=== PATIENT | female | born 2000 | race Caucasian/White ===

== ENCOUNTER 2020-10-21 11:08 | Emergency (ER) | payer SELFPAY ==
--- NOTE | ~2020-10-21 | US_ITS ---
EXAMINATION: US OB <=14 wk fetus w TV DATE: 10/21/2020 13:05 INDICATION: Vaginal bleeding TECHNIQUE: Real-time pelvic ultrasound utilizing both a transvaginal and transabdominal probe was pe rformed. The interpreting radiologist was not present for the study. COMPARISON: None. FINDINGS: The uterus measures 8.7 x 5.8 x 5.7 cm. There is an intrauterine gestational sac. A yolk sac and fet al pole are identified. The crown rump length measures 4 mm, which correlates with an estimated gesta tional age of 6 weeks and 1 days. No heart motion is detectable on cine grayscale images. No ev ident subchorionic hematoma. The right ovary measures 2.5 x 2.5 x 2.1 cm. The left ovary measures 4.2 x 3.1 x 3.3 cm. There is no free fluid in the pelvis. IMPRESSION: 1. Single fetus with crown-rump length of 4 mm consistent with gestational age by ultrasound of 6 wee ks 1 day(s) +/- 4 day(s) with ultrasound estimated date of delivery ([facility]) of 06/15/2021. 2. No discernible heart motion which may be related to early stage of . Reviewed, dictated and finalized at location [facility]. IMPRESSION: 1. Single fetus with crown-rump length of 4 mm consistent with gestational age by ultrasound of 6 weeks 1 day(s) +/- 4 day(s) with ultrasound estimated date o f delivery ([facility]) of 06/15/2021. 2. No discernible heart motion which may be related to early stage of pre gnancy.
[2020-10-21 11:10] VITALS: BP 127/79; PULSE 91; RESP 18; TEMP 36.6; O2SAT 100
[2020-10-21 11:31] LABS: Basophils Percent Auto 0.6 % (0.2-1.2); Eosinophils Absolute Auto 0.1 K/mm3 (0-0.3); Eosinophils Percent Auto 0.7 % (0-4.4); Hemoglobin 12.8 g/dL (12.0-15.0); Immature Granulocyte Absolute 0.01 K/mm3 (0.00-0.031); Immature Granulocyte Percent A 0.1 % (0-0.5); Lymphocytes Absolute Auto 1.81 K/mm3 (0.9-3.2); Lymphocytes Percent Auto 25.7 % (18.3-44.2); Mean Corpuscular HGB Conc 32.8 g/dl (32-36); Mean Corpuscular Hemoglobin 28.7 pg (26-34); Mean Corpuscular Volume 87.4 fl (80-100); Mean Platelet Volume 9.1 fl (7.4-10.4); Monocytes Absolute Auto 0.4 K/mm3 (0.1-0.6); Monocytes Percent Auto 6.1 % (2.6-8.5); Neutrophils Absolute Auto 4.7 K/mm3 (1.3-6.7); Neutrophils Percent Auto 66.8 % (45.5-73.1); Platelet Count Result 262 k/mm3 (150-375); Red Blood Count 4.46 M/mm3 (4.2-5.4); Red Cell Distribution Width 13.9 % (11.5-14.5); White Blood Count 7.1 K/mm3 (4.5-10.0)
--- NOTE | 2020-10-21 12:20 | ED.PREGNANCY ---
HPI - General Chief complaint: Vaginal Bleeding Stated complaint: , vaginal bleeding Time Seen by Provider: 10/21/20 12:04 Source: patient and RN notes reviewed Mode of arrival: ambulatory Limitations: no limitations History of Present Illness HPI Narrative: This is a 19 year old female approximately 6 weeks GA who presents for evaluation of vaginal bleeding. She found out she was 2 days ago after a positive urine test. She developed vaginal bleeding and lower abdominal cramping this morning. Initially she was having brown discharge, but she states she has developed heavier bleeding. She states she is passed out clot. She report minial suprapubic pain. She denies fever, chills, dizziness, nausea or vomiting. LMP September 11 Related Data Home Medications Medication Instructions Recorded Confirmed No Home Medications 10/21/20 10/21/20 Allergies Allergy/AdvReac Type Severity Reaction Status Date / Time amoxicillin [Augmentin] Allergy Intermediate Unknown Verified 10/21/20 12:12 clavulanic acid [Augmentin] Allergy Intermediate Unknown Verified 10/21/20 12:12 Review of Systems Review of Systems: All systems reviewed & are unremarkable except as noted in HPI and below PMFSH Past Medical History Medical History (Updated 10/21/20 @ 14:37 by Corei Ellis MD) Patient denies medical problems Surgical History Surgical History (Updated 10/21/20 @ 12:42 by Corie Ellis MD) No pertinent past surgical history Social History Social History Smoking status: Never smoker Exam Const: General: no acute distress and alert Eyes: EOM: EOMs intact bilaterally Chest: Chest palpation & inspection: normal inspection of the chest Resp: Effort & Inspection: normal respiratory effort and no retractions Auscultation: clear to auscultation bilaterally Cardio: Rate: regular rate Rhythm: regular rhythm Heart sounds: no murmurs GI: GI Palp: Yes Soft to palpation, No Tenderness to palpation present (GI) and No Guarding due to palpation present (GI) Auscultation: normal bowel sounds : Speculum Exam - Cervix: Cervical os closed Other: dark blood in vaginal vault, no clots Skin: General skin exam: normal color Rashes: no rashes Neuro: General: patient oriented x3, moves all extremities and CN's II-XI intact bilaterally Psych: Mental Status: mental status grossly normal Affect: normal affect Course Consultations Consultation #1: I spoke with Dr. Leon who is carbon sequestration plant operator for OBGYN. She recommends patient get BHCG repeat in 48 hours and that patient be seen in clinic by Monday, monday at the latest. Patent is getting dose of rhogam before discharge today. Date: 10/21/20 Time: 14:34 Vital Signs Vital signs: Vital Signs Temperature 97.9 F 10/21/20 11:10 Pulse Rate 91 10/21/20 11:10 Respiratory Rate 18 10/21/20 11:10 Blood Pressure 127/79 10/21/20 11:10 Pulse Oximetry 100 10/21/20 11:10 Temperature 98.4 F 10/21/20 14:46 Pulse Rate 68 10/21/20 15:22 Respiratory Rate 18 10/21/20 15:22 Blood Pressure 109/47 L 10/21/20 15:22 Pulse Oximetry 100 10/21/20 15:22 MDM - OB/Uterine Contractions Lab Data Attestation: I reviewed the patient's lab results. Result diagrams: 10/21/20 11:22 Labs: Lab Results 10/21/20 10/21/20 10/21/20 Range/Units 11:22 11:22 11:22 WBC 7.1 (4.5-10.0) K/mm3 RBC 4.46 (4.2-5.4) M/mm3 Hgb 12.8 (12.0-15.0) g/dL Hct 39.0 (37.0-47.0) % MCV 87.4 (80-100) fl MCH 28.7 (26-34) pg MCHC 32.8 (32-36) g/dl RDW 13.9 (11.5-14.5) % Plt Count 262 (150-375) k/mm3 MPV 9.1 (7.4-10.4) fl Immature Gran % (Auto) 0.1 (0-0.5) % Neut % (Auto) 66.8 (45.5-73.1) % Lymph % (Auto) 25.7 (18.3-44.2) % Terry % (Auto) 6.1 (2.6-8.5) % Eos % (Auto) 0.7 (0-4.4) % Baso % (Auto) 0.6 (0.2-1.2) % Lymph # (Auto) 1.81 (0.9-3.2) K/mm3
[2020-10-21 12:37] LABS: Add Urine Microscopic? YES; Appearance Urine Clear (Clear); Bacteria Urine Trace /hpf; Bilirubin Urine Negative (Negative); Blood Urine 3+ (Negative); Color Urine Yellow (Yellow); Glucose Urine UA Negative (Negative); Ketones Urine 1+ mg/dL (Negative); Leukocyte Esterase Ur 1+ LEU/UL (Negative); Mucus Urine Rare /lpf; Nitrate Urine Negative (Negative); Protein Urine Negative (Negative); Specific Grav Ur 1.013 (1.001-1.035); Squamous Epithelial Cell Urine Occasional /hpf (Few); Urobilinogen Urine Negative mg/dL (<2.0)
--- NOTE | 2020-10-21 14:04 | PC.NURSE ---
Dr. Ellis at bedside for pelvic exam.
[2020-10-21 14:46] VITALS: BP 110/67; PULSE 76; RESP 14; TEMP 36.9; O2SAT 100
[2020-10-21 15:22] VITALS: BP 109/47; PULSE 68; RESP 18; O2SAT 100
== END 2020-10-21 15:23 | disposition home or self-care (01) ==
PROVIDERS: Emergency Provider General Practice
DX: O20.0 Threatened abortion (principal); Z3A.01 Less than 8 weeks gestation of pregnancy
CPT/HCPCS: 36415; 76801; 76817; 81001; 84702; 85025; 85461; 87086; 90384; 96372; 99284; J2790

== ENCOUNTER 2020-10-23 10:40 | Outpatient (CLI) | payer SELFPAY ==
[2020-10-23 11:02] LABS: Hematocrit 38.7 % (37.0-47.0); Hemoglobin 12.6 g/dL (12.0-15.0); Mean Corpuscular HGB Conc 32.6 g/dl (32-36); Mean Corpuscular Hemoglobin 28.6 pg (26-34); Mean Platelet Volume 9.1 fl (7.4-10.4); Platelet Count Result 256 k/mm3 (150-375); Red Cell Distribution Width 13.9 % (11.5-14.5); White Blood Count 5.4 K/mm3 (4.5-10.0)
[2020-10-23 11:33] LABS: Beta HCG Quantitative 271.56 mIU/ML
== END 2020-10-23 10:41 | disposition home or self-care (01) ==
PROVIDERS: PCP Obstetrics & Gynecology; Visit Provider Obstetrics & Gynecology
DX: O20.0 Threatened abortion (principal); Z3A.00 Weeks of gestation of pregnancy not specified
CPT/HCPCS: 36415; 84702; 85027

== ENCOUNTER 2020-10-30 09:01 | Outpatient (CLI) | payer MEDICAID, SELFPAY | END 2020-10-30 09:02 | disposition home or self-care (01) | PROVIDERS: PCP Obstetrics & Gynecology; Visit Provider General Practice | DX: O20.0 Threatened abortion (principal); Z3A.00 Weeks of gestation of pregnancy not specified | CPT/HCPCS: 36415; 84702 ==

== ENCOUNTER 2021-11-15 13:29 | Emergency (ER) | payer OTHER, SELFPAY ==
--- NOTE | ~2021-11-15 | US_ITS ---
US OB <=14 wk fetus w TV DATE: 11/15/2021 16:41 INDICATION: Six-week gravid patient with lower abdominal pain TECHNIQUE: Real-time imaging via transabdominal and transvaginal approaches COMPARISON: 10/21/2020 obstetrical ultrasound FINDINGS: The uterus measures approximately 7 height, 5.2 cm AP and 6.6 cm transverse dimension. Ther e is an intrauterine gestational sac with yolk sac but no definite pole identified. Sac size is consistent with estimated gestational age of 5 weeks 5 days. Right ovary 3.0 x 2.4 x 3.1 cm. Left ovary 3.6 x 3.3 x 3.1 cm. There is vascular flow to both ovaries . No pelvic mass lesion or abnormal pelvic fluid collection is detected. IMPRESSION: Early intrauterine gestational sac, estimated age of 5 weeks 5 days by sac size. No pole is detected but yolk sac is visualized Reviewed, dictated and finalized at [facility]. Reviewed, dictated and finalized at location [facility].
[2021-11-15 13:31] VITALS: BP 128/72; PULSE 86; RESP 18; TEMP 36.8; O2SAT 100
--- NOTE | 2021-11-15 13:54 | ED.ABDPAIN ---
HPI - Abdominal Pain General Chief Complaint: Abdominal Pain Stated Complaint: pelvic cramping without vaginal bleeding - Time Seen by Provider: 11/15/21 13:45 History of Present Illness HPI narrative: 20-year-old female who is a G2, P0 presents to the emergency room for evaluation of suprapubic pain. Patient states that she found out she was this morning after her lower abdominal cramping began. Patient denies any vaginal bleeding or vaginal discharge. Patient also endorses breast tenderness. Denies dysuria. Denies fever. Was menstrual period was October 09 Related Data Home Medications Medication Instructions Recorded Confirmed No Home Medications 10/21/20 10/21/20 Allergies Allergy/AdvReac Type Severity Reaction Status Date / Time amoxicillin [Augmentin] Allergy Intermediate Unknown Verified 11/15/21 13:30 clavulanic acid [Augmentin] Allergy Intermediate Unknown Verified 11/15/21 13:30 Review of Systems Review of Systems: CONSTITUTIONAL: Denies fever, chills, or sweats. EYES: Denies visual changes, redness, or discharge. ENT: Denies rhinorrhea, congestion, sore throat, or otalgia. CARDIOVASCULAR: Denies chest pain, palpitations, or edema. RESPIRATORY: Denies cough or dyspnea. GASTROINTESTINAL: Reports lower abdominal pain GENITOURINARY: Denies dysuria or hematuria. SKIN: Denies rash or itching. MUSCULOSKELETAL: Denies back pain, joint pain, or myalgia. NEUROLOGIC: Denies headache, numbness, dizziness, or weakness. PSYCHIATRIC: Denies anxiety or depression. [facility] Past Medical History Medical History (Updated 11/15/21 @ 16:59 by Brandin Spence APRN) Patient denies medical problems Surgical History Surgical History (Updated 10/23/20 @ 15:14 by Douglas Malcolm) No pertinent past surgical history Social History Social History (System 10/23/20 @ 15:14 by Douglas Malcolm) Smoking status: Never smoker Exam Narrative: GENERAL: Well-appearing, well-nourished, no physical limitations, and in no acute distress. HEAD: Normocephalic, atraumatic. EYES: Conjunctivae normal, PERRLA and EOMI. CHEST: Clear to auscultation. No respiratory distress. No wheezes rales or rhonchi. No tenderness. HEART: Regular rate and rhythm. No murmur heard. Normal peripheral pulses. ABDOMEN: Soft, suprapubic tenderness, nondistended, normal active bowel sounds. BACK: No CVA tenderness EXTREMITIES: Normal range of motion. No edema. No clubbing or cyanosis SKIN: Warm, dry, no rash. No noted wounds NEURO: No focal deficits. Alert and oriented x3. MAEW. CN's II-XI intact bilaterally, normal gait PSYCH: Cooperative. Normal mood and affect. Course Vital Signs Vital signs: Vital Signs Temperature 36.8 C 11/15/21 13:31 Pulse Rate 86 11/15/21 13:31 Respiratory Rate 18 11/15/21 13:31 Blood Pressure 128/72 11/15/21 13:31 Pulse Oximetry 100 11/15/21 13:31 Oxygen Delivery Room Air 11/15/21 13:31 Temperature 36.8 C 11/15/21 13:31 Pulse Rate 86 11/15/21 13:31 Respiratory Rate 18 11/15/21 13:31 Blood Pressure 128/72 11/15/21 13:31 Pulse Oximetry 100 11/15/21 13:31 Oxygen Delivery Room Air 11/15/21 13:31 MDM - Abdominal Pain Lab Data Result diagrams: 11/15/21 14:14 11/15/21 14:14 Labs: Lab Results 11/15/21 11/15/21 11/15/21 Range/Units 14:14 14:14 14:14 WBC 7.5 (4.5-10.0) K/mm3 RBC 4.36 (4.2-5.4) M/mm3 Hgb 13.0 (12.0-15.0) g/dL Hct 39.0 (37.0-47.0) % MCV 89.4 (80-100) fl MCH 29.8 (26-34) pg MCHC 33.3 (32-36) g/dl RDW 13.5 (11.5-14.5) % Plt Count 212 (150-375) k/mm3 MPV 9.0 (7.4-10.4) fl Immature Gran % (Auto) 0.5 (0-0.5) % Neut % (Auto) 77.3 H (45.5-73.1) % Lymph % (Auto) 8.6 L (18.3-44.2) % Hale % (Auto) 12.9 H (2.6-8.5) % Eos % (Auto) 0.4 (0-4.4) % Baso % (Auto) 0.3 (0.2-1.2) % Lymph # (Auto) 0.65 L (0.9-3.2) K/mm3 Hale # (Auto) 1.0 H (0.1-0
[2021-11-15 14:32] LABS: Basophils Percent Auto 0.3 % (0.2-1.2); Eosinophils Percent Auto 0.4 % (0-4.4); Immature Granulocyte Absolute 0.04 K/mm3 (0.00-0.031); Immature Granulocyte Percent A 0.5 % (0-0.5); Lymphocytes Absolute Auto 0.65 K/mm3 (0.9-3.2); Lymphocytes Percent Auto 8.6 % (18.3-44.2); Mean Corpuscular HGB Conc 33.3 g/dl (32-36); Mean Corpuscular Hemoglobin 29.8 pg (26-34); Mean Corpuscular Volume 89.4 fl (80-100); Monocytes Percent Auto 12.9 % (2.6-8.5); Neutrophils Absolute Auto 5.8 K/mm3 (1.3-6.7); Neutrophils Percent Auto 77.3 % (45.5-73.1); Platelet Count Result 212 k/mm3 (150-375); Red Blood Count 4.36 M/mm3 (4.2-5.4); Red Cell Distribution Width 13.5 % (11.5-14.5); White Blood Count 7.5 K/mm3 (4.5-10.0)
[2021-11-15 14:42] LABS: Bacteria Urine Trace /hpf; Mucus Urine Rare /lpf; RBC Urine 0-2 /hpf (0-2); Squamous Epithelial Cell Urine Few /hpf (Few); WBC Urine 0-3 /hpf
[2021-11-15 14:45] LABS: Alanine Aminotransferase 19 U/L (6-35); Albumin Level 4.4 g/dL (3.5-5.1); Alkaline Phosphatase 50 U/L (38-126); Anion Gap 6 mmol/L (8-16); Aspartate Amino Transferase 24 U/L (14-36); Bilirubin,Total 0.5 mg/dL (0.2-1.3); Blood Urea Nitrogen 8 mg/dL (7-17); Calcium 9.2 mg/dL (8.4-10.2); Carbon Dioxide 24 mmol/L (22-30); Chloride 103 mmol/L (98-107); Estimated CRCL calculation 118 ml/min; Estimated Glomerular Filt Rate > 60; Glucose 92 mg/dL (65-110); Lipase 78 U/L (23-300); Potassium 4.7 mmol/L (3.4-5.0); Sodium 133 mmol/L (137-145)
[2021-11-15 14:46] LABS: Appearance Urine Clear (Clear); Bilirubin Urine Negative (Negative); Blood Urine Negative (Negative); Color Urine Yellow (Yellow); Glucose Urine UA Negative (Negative); Ketones Urine Negative (Negative); Leukocyte Esterase Ur Negative LEU/UL (Negative); Nitrate Urine Negative (Negative); Protein Urine Negative (Negative); Specific Grav Ur 1.015 (1.001-1.035); Urobilinogen Urine 0.2 mg/dL (<2.0)
[2021-11-15 14:49] LABS: Add Urine Microscopic? NO
[2021-11-15 17:45] VITALS: BP 131/67; PULSE 80; RESP 16; O2SAT 100
== END 2021-11-15 17:45 | disposition home or self-care (01) ==
PROVIDERS: Emergency Provider Nurse Practitioner Family; PCP Obstetrics & Gynecology
DX: R10.2 Pelvic and perineal pain (principal); O26.891 Other specified pregnancy related conditions, first trimester; Z3A.01 Less than 8 weeks gestation of pregnancy
CPT/HCPCS: 36415; 76801; 76817; 80053; 81003; 83690; 84702; 85025; 99284

== ENCOUNTER 2024-07-08 18:58 | Emergency (ER) | payer OTHER, SELFPAY ==
--- OUTSIDE RECORDS SUMMARY | 2024-07-08 19:00 | XMS_ITS | Clinical Summary ---
Author Organization [facility] Address [address] [place] [address] Care Team Providers Care Register Of Deeds Name Role Phone Suzanne Sims 4 H YOUTH DEVELOPMENT SPECIALIST Primary Care Provider [phone] Allergies Active Allergy Reactions Criticality Noted Date Comments Amoxicillin-Pot Clavulanate Other (See comments) Low 05/17/2019 hives Medications fluticasone propionate (FLONASE) 50 mcg/actuation nasal sprayIndications: Acute non-recurrent pansinusitis Administer 2 sprays into each nostril daily 16 g 5 Active Active Problems No known active problems Surgical History Surgery Date Site/Laterality Comments NO PAST SURGERIES Medical History Medical History Date Comments No pertinent past medical history Family History Relation Name Status Comments Father Alive Mother Alive Social History Tobacco Use Types Packs/Day Years Used Date Smoking Tobacco: Never Personal Safety Answer Date Recorded Getting School Help Needed Not on file 05/20 Comments No Sex and Gender Information Value Date Recorded Sex Assigned at Not on file 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 Gender Identity Not on file Sexual Orientation Not on file Obstetrics History Last Filed Vital Signs Vital Sign Reading Time Taken Comments Blood Pressure 100/62 12/20/2020 8:59 AM CDT Pulse 84 12/20/2020 8:59 AM CDT Temperature 36.6 C (97.9 F) 12/20/2020 8:59 AM CDT Respiratory Rate 16 12/20/2020 8:59 AM CDT Oxygen Saturation 98% 12/20/2020 8:59 AM CDT Inhaled Oxygen Concentration - - Weight 68.4 kg (150 lb 12.8 oz) 12/20/2020 8:59 AM CDT Height 172.7 cm (5' 8 ) 12/20/2020 8:59 AM CDT Body Mass Index 22.93 12/20/2020 8:59 AM CDT Plan of Treatment Not on file Insurance [facility] Care Teams Register Of Deeds Relationship Specialty Start Date End Date Suzanne Sims NP [address] [place] [address] PCP - General Agriculture Sales Account Manager 12/19/20
--- OUTSIDE RECORDS SUMMARY | 2024-07-08 19:00 | XMS_ITS | Data Portability ---
Author Organization [facility] [place] Address [address] [place] [address] Care Team Providers Care Supervisor Prop Making Name Role Phone SHAMAR MCLEAN Primary Care Provider [phone] Assessment Encounter Date Assessment Date Assessment LastModified by Organization Details LastModified Time 12/08/2021 12/08/2021 First trimester at 8w4d with BERNABE 07/16/22 by LMP cw Ob education done and all questions answered. Discussed safe sexual practices, environmental, work hazards, travel restrictions, seat belt use. Encouraged flu shot. Encouraged a healthy well balanced diet, avoid alcohol, tobacco, and street drugs, and engage in daily low impact exercise. Avoid cat feces. Avoid travel to areas where zika virus is a concern. OB labs next visit with NIPt Encouraged vitamins. Prescription sent if needed. Discussed screening for aneuploidy- desires discussed and encouraged COVID vaccine- declines Discussed the risks of smoking/vaping in (including but not limited to delivery, SGA babies, placental insufficiency) and the general health risks of smoking. Cessation was strongly encouraged. pap and std testing done Follow up in 4 weeks for first ob appointment [email or web address] Not available 12/14/2021 07:39:26 Plan of Treatment Reminders Order Date Submit Date Provider Last Modified By Organization Details Last Modified Time Details Appointments None recorded. Lab urinalysis , dipstick 2021 022 [facility] [place], [address], [address], [place], [address], 11:33:51 Referral None recorded. Procedures None recorded. Surgeries None recorded. Imaging None recorded. Medication Orders None recorded. Patient TargetsNo targets recorded. Patient InstructionsNo instructions recorded. Reason for Referral None Reported. Results Created Date Observation Date Name Description Value Unit Range Abnormal Flag Note LastModifiedBy Organization Detail LastModifiedTime 12/09/19 22 12/08/2021 IMAGE GUIDE D PAP, REFLE X HPV IF ASCUS ONLY image guided Pap, reflex HPV ASCUS only SEE RESULT S BELOW CASE REPOR T: Cytol ogy Gynec ologi consuelo Repor t Case: [id number] Autho karen orozco Provi paola: Cindy Vazquez MD Colle cted: 12/08 1112 Order ing Locat ion: [place] [facility] Recei corrie: 12/09 0736 First Scree n: Elias Díaz, CT Speci men: Lio anderson Pap - Image d, Cervi x STATE MENT OF ADEQU ACY: Satis facto ry for evalu ation No endoc ervic al compo nent prese nt is ident ified . An endoc ervic al compo nent is not commo nly seen in the pregn ant patie nt. FINAL DIAGN OSIS: Negat amado for Intra epith elial Lesio n or Valentin hubbard (NIL) . Funga l organ isms morph ologi suzette consi stent with Carito da spp. Elect klaudia hartley dwight d by Elisa Díaz, CT on 2021 at 7:57 AM ----- ----- ----- ----- ----- ----- ----- ----- ----- ----- ----- ----- ----- ----- ----- ----- ----- ---- COMME NT: Note: This speci men was revie wed by a Cytot echno logis t and/o r Patho logis t (as indic ated in this repor t) after evalu ation using the Thinp rep Imagi ng Syste m. CLINI CONSUELO INFOR MATIO N: Menst rual Statu s: LMP (if appli cable ): Clini consuelo Histo ry/Pr eviou s Pap: Type of Neopl dakotah (if appli cable ): Signi fican t Clini consuelo Findi ngs: Other Histo ry: Hormo bess (if appli cable ): PAP EDUCA NISREEN L NOTE: The Pap Test is a scree monica test with an inher ent false negat amado rate. Liqui d-bas ed sampl ing may decre ase, but will not elimi jair, false negat amado resul ts. A negat amado resul t does not precl ude the prese nce and/o r devel opmen t of disea se, since the prese nce of abnor mal cells in the sampl e depen ds on the locat ion of the lesio n and sampl ing techn ique. Livan nued regul ar scree monica is the best metho d of cance r preve ntion . If repor candida cytol ogic findi ng do not corre late with physi consuelo and/o r histo rical findi ngs, furth er inves tigat ion is recom bryce d, as clini suzette warrlisa nted. Not Available [facility] [address] [place], [address], 12/14/2021 08:59:58 12/09/19 22 12/08/2021 TRICH OMONA S VAGIN AUGUSTUS (RRNA ) trichomonas vaginalis ribosomal RNA (rrna) Negati ve negati ve Not Available [facility] [address] [place], [address], 12/14/2021 08:59:58 12/09/19 22 12/08/2021 CT/GC (ALONSO) , THINP REP VIAL chlamydia trachomatis, PCR Negati ve negati ve Not Available [facility] [address] [place], [address], 12/14/2021 08:59:59 12/09/19 22 12/08/2021 CT/GC (ALONSO) , THINP REP VIAL neisseria gonorrhoeae, PCR Negati ve negati ve Not Available [facility] [address] [place], [address], 12/14/2021 08:59:59 12/16/19 22 12/15/2021 CULTU RE: URINE result report SEE RESULT S BELOW Test: Cultu re: Urine Speci men Sourc e: Urine Voide d Speci men Type: Urine Speci men Date: 2021 1:41 PM Resul t Date: 2021 7:31 PM Resul t Statu s: Final resul t Abnor mal: No Resul ting Lab: [facility] [address] [facility] [address] Tel: CULTU RE ----- ----- ----- --- No growt h in 1 day (dete ction level of 10,00 0 colon ies / ml.) Not Available [facility] [address] [place], [address], 12/16/2021 20:34:13 12/16/19 22 12/15/2021 urina lysis , dipst ick Leukocytes trace Not Available [facility] [address], [place], [address], 12/15/2021 11:33:30 12/16/19 22 12/15/2021 urina lysis , dipst ick Nitrite neg Not Available [place] [address], [place], [address], 12/15/2021 11:33:30 12/16/19 22 12/15/2021 urina lysis , dipst ick Protein trace Not Available [place] [address], [place], [address], 12/15/2021 11:33:30 12/16/19 22 12/15/2021 urina lysis , dipst ick Ketone neg Not Available [place] [address], [place], [address], 12/15/2021 11:33:30 12/08/19 22 12/07/2021 US, obste tric, follo w-up No observ ation record ed. [email or web address] [address], [place], [address], 12/14/2021 09:29:18 Result Notes None recorded. Problems Name Problem SNOMED Code Status Onset Date Resolution Date Notes Provider Name and Address Organization Details Recorded Time Vaccinatio n not done 385804869458 08 Active 2021 Cindy Zarate MD [address], [place], [address], [facility] 2 07:37:46 Electronic cigarette user 389609126 Active 2021 Cindy Zarate MD [address], [place], [address], [facility] 2 07:37:48 RhD negative 366458067 Active 2021 Cindy Zarate MD [address], [place], [address], [facility] 2 07:37:51 Problem Notes None recorded. Procedures Surgical History None recorded. Imaging Results Imaging Date Name Status LastModified by Organiz ation Details LastModified Time 12/07/2021 US, obstetric, follow-up completed [email or web address] [address], [place], [address], 12/14/2021 09:29:18 Procedure Notes None recorded. Medical Equipment None Reported. Allergies Allergen ID Allergen Name Allergen Category Reaction Reaction Severity Criticality Documentation Date Start Date Code Code System Note Provider Name and Address Organization Details Recorded Time Product containin g penicilli n (product) medicatio n Not available Not available Not available 12/07/2021 02681 8001 SNOMED [facility] 09:52:25 00795 Augmentin medicatio n Not available Not available Not available 12/07/2021 87947 2 RxNorm Marii Lara [facility] 2 09:52:31 Medications Name Sig Start Date Stop Date Status Note LastModified by Organization Details LastModified Time doxycycline hyclate 100 mg capsule 12/08 completed Not Available Not Available Not Available methylpredn isolone 4 mg tablets in a dose pack FOLLOW PACKAGE DIRECTION S 12/08 completed Not Available Not Available Not Available fluticasone propionate 50 mcg/actuati on nasal spray,suspe nsion SHAKE LIQUID AND USE 2 SPRAYS IN EACH NOSTRIL DAILY 12/08 completed Not Available Not Available Not Available Vitals Date Recorded Body height Body mass index (BMI) Body weight Systolic blood pressure Diastolic blood pressure Provider Name and Address Organization Details Last Updated DateTime 12/08/2021 172.72 cm 21.7 kg/m2 41460.71 g 126 mm[Hg] 76 mm[Hg] Marii Shayneayan [facility] 2 09:53:11 Social History Question Answer Notes LastModified by Organizat ion Details LastModified Time Tobacco Smoking Status Never Smoker Marii Bellaayan [facility] 12/07/2021 09:52:55 What Is Your Level Of Alcohol Consumption? None Information not available 12/07/2021 If You Are , What Was Your Level Of Alcohol Consumption Prior To ? None Information not available 12/07/2021 Do You Use Any Illicit Or Recreational Drugs? No Information not available 12/07/2021 Has Tobacco Cessation Counseling Been Provided? No Information not available 12/07/2021 Do You Or Have You Ever Used Any Other Forms Of Tobacco Or Nicotine? No Information not available 12/07/2021 Sex: Unknown Functional Status None recorded. Mental Status None recorded. Family History Relationship Description Onset Age of this Age Resolved Age Notes LastModified by Organization Details LastModified Time Maternal Grandfather Diabetes mellitus [email or web address] Not available 2021 09:54:10 Maternal Grandfather Carcinoma in situ of lung [email or web address] Not available 11:08:28 Paternal Grandfather Diabetes mellitus [email or web address] Not available 2021 09:54:10 Medical History Condition Response Allergies (Food, seasonal, environmental ) N Other N Blood Transfusion N Drug/Latex Allergies/Reactions N Breast Cancer N Dermatologic Disorders N Lung Disease N Defects or Inherited Disease N Breast Problem N Gestational Diabetes N Hematologic disorders N Anesthesia Complications N History of STI N Deep Vein Thrombosis N Polycystic ovary syndrome N Anxiety Disorder N Autoimmune disease N Arthritis N Infertility N Polyps N Acid Reflux (GERD) N History of abnormal pap N Cancer N Stroke N Varicosities N Neurologic/Epilepsy N Endometriosis N High Cholesterol N Headaches N Fibromyalgia N Kidney Disease N Heart Problems N Kidney or Bladder Problems N Thyroid Problems N GI Problems N Eating Disorder N Anemia N Art (IVF or FET) N Psychiatric Illness N Ovarian Cancer N Diabetes N Pulmonary (TB, Asthma) N Hepatitis/Liver Disease N No Past Medical History N Eczema N Urinary Tract Infection N Abuse/Domestic Violence N Asthma N Trauma/Violence N Depression/ depression N Heart Disease N Pre-Eclampsia N Hypertension N Osteoporosis N Thrombophilias N Gynecological History Statement/Question Response Age of first menstrual cycle 13 Current Control Method Date of LMP 10/09/2021 Obstetrics History GPAL:G 1 P 0 0 1 0 Type Value Spontaneous 1 Living 0 Total 1 Past Encounters Encounter ID Performer Location Encounter Start Date Encounter Closed Date Diagnosis/Indication Diagnosis SNOMED-CT Code Diagnosis ICD10 Code Diagnosis Note [id number] [place] [address] [place] [address] 12/07/2021 14:04:55 12/07/2021 14:32:39 [id number] Cindy Zarate MD [place] [address] [place] [address] 12/07/2021 14:08:06 02/12/2022 20:53:43 [id number] Cindy Zarate MD [place] [address] [place] [address] 12/08/2021 09:46:22 12/11/2021 13:01:21 test positive 426113363 Z32.01 Screening for malignant neoplasm of cervix 524419733 Z12.4 Venereal d isease screening 085639028 Z11.3 RhD negative 412760608 Z 01.83 Electronic cigarette user 440363083 Z72.89 Vaccination not done 328 5386989 9108 Z28.9 covid [id number] Cindy Zarate MD [place] [address] [address] 12/15/2021 11:08:04 12/16/2021 11:29:21 Dysuria 01289996 R30.9 Health Concerns Section Related Observation LastModified by Organization Detai ls LastModified Time None Recorded Concern Status LastModified by Organization Details LastModified Time None Recorded Advance Directives Directive None Recorded Payers Encounter Date Sequence Insurance Name Policy Number Policy Francisco Covered Member ID Francisco Member ID Guarantor Name 12/07/2021 1 [facility] ON OR AFTER 09/17/20 (MEDICAID REPLACEMENT - HMO) [id number] Jennifer Pans [id number] Jennifer Sies 12/07/2021 1 [facility] ON OR AFTER 09/17/20 (MEDICAID REPLACEMENT - HMO) [id number] Jennifer Sies [id number] Jennifer Sies 12/08/2021 1 [facility] ON OR AFTER 09/17/20 (MEDICAID REPLACEMENT - HMO) [id number] Jennifer Sies [id number] Jennifer Sies 12/15/2021 1 [facility] ON OR AFTER 09/17/20 (MEDICAID REPLACEMENT - HMO) [id number] Jennifer Pans [id number] Jennifer Pans Notes Date Note Type Note Provider Name and Address Organization Details Recorded Time 12/08/2021 text/html Pt is a 21yo who presents for missed menses and possible . LMP 10/09, menses regular. 8w4d GA by LMP. was planned. US yesterday cw dates. She is feeling ok so far. Was in ED for UTI, feeling better. Is rh neg. NO bleeding. Vapes, cutting down. Has not had COVID vaccines and declines. Prepreg weight 130#. Had an 8w sab last year. Last annual exam - never had pap. She denies domestic violence and she denies depression. Cindy Zarate MD [address], [place], [address], [facility] 12/14/2021 07:39:45 OBGyn Episode Ob Episode Information Episode Created Date Number of Fetuses Patient Bloodtype Patient rh Status Prepregnancy Weight lbs Domestic Partner Domestic Partner Phone Father Name Wall Crane Operator Status 12/09/19 22 1 CLOSED Fetus Data First Name Last Name Admitted to NICU Weight (g) Sex Living Outcome Pediatric Complications Fetus ID Race Codes Race Delivery Type , Spontane ous [id number] Bernabe Calculation Initial Bernabe Date Initial Exam Date Initial Exam Provider Initial Ultrasound Date Last Menstrual Period Date Ultra Sound Weeks Gestation 0 Eighteen To Twenty Week Bernabe Update Ultra Sound Date Fundal Height At Umbil Quickening Date Ultra Sound Latest Weeks Gestation Final Bernabe Confirmed By Final Bernabe Confirmed Date Final Bernabe Date Ultra Sound Latest Days Gestation 0 0 Menstrual History Last Menstrual Date Menses Monthly On Bcp Conception Prior Menses Frequency Hcg Plus Date Menarche Onset Age Delivery Information Delivery Date Delivery Type Labor Anesthesia Weeks Gestation Incision Type Labor Labor Length Hrs Delivered By Post Complications Tubal Sterilization Discharge Date Comments 1 Discharge Information Feeding Method Contraceptive Method Maternal HG B and HCT Levels
--- OUTSIDE RECORDS SUMMARY | 2024-07-08 19:00 | XMS_ITS | Referral Summary ---
Author Organization [facility] Address [address] [place] [address] Care Team Providers Care Ppap Coordinator Name Role Phone Suzanne Sims MANAGER OF PROCUREMENT Primary Care Provider [phone] Allergies Active Allergy Reactions Criticality Noted Date Comments Amoxicillin-Pot Clavulanate Other (See comments) Low 05/17/2019 hives Medications fluticasone propionate (FLONASE) 50 mcg/actuation nasal sprayIndications: Acute non-recurrent pansinusitis Administer 2 sprays into each nostril daily 16 g 5 Active Active Problems No known active problems Social History Tobacco Use Types Packs/Day Years Used Date Smoking Tobacco: Never Personal Safety Answer Date Recorded Getting School Help Needed Not on file 05/20 Comments No Sex and Gender Information Value Date Recorded Sex Assigned at Not on file Legal Sex Female 7:40 PM TECHNOLOGY COORDINATOR Gender Identity Not on file Sexual Orientation Not on file Last Filed Vital Signs Vital Sign Reading [...] Plan of Treatment Not on file Insurance [facility] Care Teams Ppap Coordinator Relationship Specialty Start Date End Date Suzanne Sims NP [address] [place] [address] PCP - General Corporate Safety Coordinator 12/19/20
[2024-07-08 19:04] VITALS: BP 133/90; PULSE 80; RESP 20; TEMP 36.7; O2SAT 100
--- OUTSIDE RECORDS SUMMARY | 2024-07-08 19:04 | XMS_ITS | Encounter Summary ---
Author Organization [facility] Address [address] [place] [address] Care Team Providers Care Punch Press Setter Name Role Phone Cash Rodriguez MD Primary Care Provider [phone] Encounter Details Date Type Department Care Team (Late st Contact Info) Description 07/17/[address] [facility] [address] [place] [address] Madonna Prajapati, RN Social History Tobacco Use Types Packs/Day Years Used Date Smoking Tobacco: Never Assessed Humiliation, Afraid, Rape, and Kick questionnair e Answer Date Recorded Within the last year, have y ou been afraid of your partner or ex-partner? No 06/28/2022 Within the last year, have y ou been humiliated or emotionally abused in other ways by your partner or ex-partner? No Within the last year, have y ou been kicked, hit, slapped, or otherwise physically hurt by your partner or ex-partner? No 06/28/2022 Within the last year, have y ou been raped or forced to have any kind of sexual activity by your partner or ex-partner? No 06/28/2022 Social Connection and Isolation Panel [NHANES] A nswer Date Recorded In a typical week, how many times do you talk on the phone with family, friends, or neighbors? Three times a week 06/29/19 How often do you get togethe r with friends or relatives? Three times a week 06/28/2022 How often do you attend [facility] or [facility] services? 1 to 4 times per year 06/28/2022 Do you belong to any clubs o r organizations such as buddhist groups, unions, fraternal or athletic groups, or school groups? No 06/28/2022 How often do you attend meet ings of the clubs or organizations you belong to? 1 to 4 times per year 06/28/2022 Are you , , di vorced, , never , or living with a partner? Living with partner 06/28/2022 AUDIT-C Answer Date Recorded Q1: How often do you have a drink containing alcohol? Never 06/28/2022 Q2: How many drinks containi ng alcohol do you have on a typical day when you are drinking? Patient does not drink Q3: How often do you have si x or more drinks on one occasion? Never 06/28/2022 Overall Financial Resource Strain (CARDIA) Answe r Date Recorded How hard is it for you to pa y for the very basics like food, housing, medical care, and heating? Not hard at all 06/28/2022 [facility] - Occupational Stress Questionnaire Answer Date Recorded Do you feel stress - tense, restless, nervous, or anxious, or unable to sleep at night because your mind is troubled all the time - these days? Only a little 06/28/2022 Exercise Vital Sign Answer Date Recorde d On average, how many days pe r week do you engage in moderate to strenuous exercise (like a brisk walk)? 4 days 06/28/2022 On average, how many minutes do you engage in exercise at this level? 30 min 06/28/2022 Hunger Vital Sign Answer Date Recorded Within the past 12 months, y ou worried that your food would run out before you got the money to buy more. Never true 06/29/19 23 Within the past 12 months, t he food you bought just didn't last and you didn't have money to get more. Never true 06/28/2022 PRAPARE - Transportation Answer Date Re corded In the past 12 months, has l ack of transportation kept you from medical appointments or from getting medications? No 06/18 In the past 12 months, has l ack of transportation kept you from meetings, work, or from getting things needed for daily living? No 06/28/2022 Housing Stability Vital Sign Answer Michael e Recorded In the last 12 months, was t here a time when you were not able to pay the mortgage or rent on time? No 06/28/2022 In the last 12 months, how many places have you lived? 1 06/28/2022 In the last 12 months, was t here a time when you did not have a steady place to sleep or slept in a senior care (including now)? No 06/28/2022 Comments No Sex and Gender Information Value Date Recorded Sex Assigned at Not on file Legal Sex Female 11:04 PM MANAGER MARKET INTELLIGENCE Gender Identity Not on file Sexual Orientation Not on file COVID-19 Exposure Response Date Recorded In the last 10 days, have yo u been in contact with someone who was confirmed or suspected to have Coronavirus/COVID-19? No / Unsure 07/02/2022 11:42 AM CDT documented as of this encounter Functional Status * Are you deaf or do you have serious difficulty hearing Answer Date of Assessment Author Status No 06/28/2022 5:03 PM CDT Junito Simms RN Active * Are you blind or do you have serious difficulty seeing, even when wearing glasses? Answer Date of Assessment Author Status No 06/28/2022 5:03 PM SHARONT Junito Simms RN Active * Do you have serious difficulty walking or climbing stairs? Answer Date of Assessment Author Status No 06/28/2022 5:03 PM Junito Diaz RN Active * Do you have difficulty dressing or bathing? Answer Date of Assessment Author Status No 06/28/2022 5:03 PM SHARONT Junito Simms RN Active * Because of a physical, mental, or emotional condition, do you have difficulty doing errands alone such as visiting a doctor's office or shopping? Answer Date of Assessment Author Status No 06/28/2022 5:03 PM Junito Diaz RN Active documented as of this encounter Mental Status * Because of a physical, mental, or emotional condition, do you have serious difficulty concentrating, remembering, or making decisions? Answer Entry Date Author Status No 06/28/2022 5:03 PM CDT Demi, Junito L, RN Active documented in this encounter Progress Notes * Madonna Prajapati RN - 07/17/2022 9:03 PM CDTSummary: Phone call to check in with pt regarding . No answer. No abiltiy to leave a message. Will try again. documented in this encounter Plan of Treatment Not on file documented as of this encounter Visit Diagnoses Not on filedocumented in this encounter Care Teams Punch Press Setter Relationship Specialty Start Date End Date Cash Rodriguez MD [address] [place] [address] PCP - General FAMILY PRACTICE 04/25/22 documented as of this encounter
--- OUTSIDE RECORDS SUMMARY | 2024-07-08 19:04 | XMS_ITS | Clinical Summary ---
Author Organization [facility] Address [address] [place] [address] Care Team Providers Care Necktie Operator Pockets And Pieces Name Role Phone Cash Rodriguez MD Primary Care Provider [phone] Allergies Active Allergy Reactions Criticality Noted Date Comments Amoxicillin-Pot Clavulanate Hives 05/28/19 23 Penicillins Hives 05/27/2022 Medications sucralfate (CARAFATE) 1 G tablet Take 1 tablet (1 g total) by mouth as needed. Active BLOOD PRESSURE CUFF, DME,Indications: Gestational hypertension (HHS/HCC) 1 Device by Does not apply route 2 (two) times a day. preeclampsia 1 Device 3 Active Active Problems Problem Noted Date Diagnosed Date Perineal laceration complicating delivery (HHS/H CC) 06/30/2022 37 weeks gestation of (HHS/HCC) 2022 Gestational hypertension (HHS/HCC) 06/28/2022 RhD negative 12/14/2021 Social History Tobacco Use Types Packs/Day Years Used Date Smoking Tobacco: Never Smokeless Tobacco: Never Tobacco Cessation:Counseling Given: No Humiliation, Afraid, Rape, and Kick questionnair e [...] week 06/28/2022 How often do you attend chur ch or zoroastrian services? 1 to 4 times per year 06/28/2022 Do you belong to any clubs o r organizations such as denominational groups, unions, fraternal or athletic groups, or [...] and heating? Not hard at all 06/28/2022 [facility] - Occupational Stress [...] place to sleep or slept in a usp (including now)? 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 Gender Identity Not on file Sexual Orientation Not on file Last Filed Vital Signs Vital Sign Reading Time Taken Comments Blood Pressure 132/80 07/02/2022 12:00 PM CDT Pulse 80 07/02/2022 12:00 PM CDT Temperature 36.2 C (97.2 F) 07/02/2022 12:00 PM CDT Respiratory Rate 20 07/02/2022 12:00 PM CDT Oxygen Saturation 99% 06/30/2022 2:00 PM CDT Inhaled Oxygen Concentration - - Weight 88.9 kg (196 lb) 06/30/2022 11:00 AM CDT Height 170.2 cm (5' 7 ) 06/30/2022 11:00 AM CDT Body Mass Index 30.7 06/30/2022 11:00 AM CDT Plan of Treatment Health Maintenance Due Date Last Done Comments Cervical Cancer Screening Pap Smear (Age 21 to 29) Every 3 Years 1999 Cervical Cancer Screening 1999 Annual Physical 12/11/2002 HPV Vaccines (1 - 3-dose series) 12/11/2014 Hepatitis C 12/11/2017 COVID-19 Vaccine ( season) 2023 DTaP, Tdap and Td Vaccines (7 - Td or Tdap) 04/25/2032 04/25/2022, 01/27/2012, 11/28/2005, Additional history exists Hepatitis B Vaccines Completed 11/28/2005, 02/18/2005, 07/25/2000 Meningococcal Vaccine Completed 01/01/2018 Meningococcal B Vaccine Aged Out No l onger eligible based on patient's age to complete this topic Pneumococcal Vaccine: Pediatrics (0 to 5 Years) and At-Risk Patients (6 to 49 Years) Aged Out No longer eligible based on patient's age to complete this topic RSV Immunizations Under 20 Months Aged Out No longer eligible based on patient's age to complete this topic Insurance [place] [address] Advance Directives * Full Code (Latest Code Status on File) Date Activated Date Inactivated Comments 06/28/2022 2:22 PM 06/29/2022 6:26 PM * Full Code Date Activated Date Inactivated Comments 06/28/2022 12:09 PM 06/28/2022 2:22 PM Care Teams Necktie Operator Pockets And Pieces Relationship Specialty Start Date End Date Cash Rodriguez MD [address] [place] [address] PCP - General FAMILY PRACTICE 04/25/22
--- OUTSIDE RECORDS SUMMARY | 2024-07-08 19:04 | XMS_ITS | Encounter Summary ---
Author Organization [facility] Address [facility] [place] [address] Care Team Providers Care Hand Umbrella Tipper Name Role Phone Cash Rodriguez MD Primary Care Provider [phone] Encounter Details Date Type Department Care Team (Late st Contact Info) Description 08/25/2018 Abstract SFL CONVERSION [address] [place] [address] , Generic ConversionMD Social History Tobacco Use Types Packs/Day Years Used Date Smoking Tobacco: Never Assessed Comments Unknown Sex and Gender Information Value Date Recorded Sex Assigned at Not on file Legal Sex Female 11:04 PM SERVICE DOG TRAINER Gender Identity Not on file Sexual Orientation Not on file documented as of this encounter Plan of Treatment Not on file documented as of this encounter Visit Diagnoses Not on filedocumented in this encounter Additional Health Concerns Infection Onset Date Last Indicated Resolved Time COVID-19 Rule Out 05/27/2022 05/27/2022 05/27/2022 10:07 AM SERVICE DOG TRAINER COVID-19 Confirmed 05/27/2022 05/27/2022 12:32 AM CDT documented as of this encounter Care Teams Hand Umbrella Tipper Relationship Specialty Start Date End Date Cash Rodriguez MD [address] [place] [phone] PCP - General FAMILY PRACTICE 04/25/22 documented as of this encounter
--- OUTSIDE RECORDS SUMMARY | 2024-07-08 19:04 | XMS_ITS | Encounter Summary ---
Author Organization [facility] Address [address] [place] [address] Care Team Providers Care Carrier Operator Name Role Phone Cash Rodriguez MD Primary Care Provider [phone] Encounter Details Date Type Department Care Team (Late st Contact Info) Description 08/26/[address] [facility] [address] [place] [address] Madonna Prajapati, RN Social History Tobacco Use Types Packs/Day Years Used Date Smoking Tobacco: Never Smokeless Tobacco: Never Humiliation, Afraid, Rape, and Kick questionnair e [...] week 06/28/2022 How often do you attend [facility] or orthodox services? 1 to 4 times per year 06/28/2022 Do you belong to any clubs o r organizations such as adventist groups, unions, fraternal or athletic groups, or [...] and heating? Not hard at all 06/28/2022 [facility] [...] place to sleep or slept in a retirement (including now)? 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 Answer Date of Assessment Author Status No 06/28/2022 5:03 PM Junito Diaz RN Active * Do you have serious difficulty walking or climbing stairs? Answer Date of Assessment Author Status No 06/28/2022 5:03 PM Junito Diaz RN Active * Do you have difficulty dressing or bathing? Answer Date of Assessment Author Status No 06/28/2022 5:03 PM Junito Diaz RN Active * Because of a physical, [...] Date Author Status No 06/28/2022 5:03 PM Junito Diaz RN Active documented in this encounter Progress Notes * Madonna Prajapati RN - 08/26/2022 12:42 AM CDT Phone call to pt to check in on . Phone number not working at this time. documented in this encounter Plan of Treatment Not on file documented as of this encounter Visit Diagnoses Not on filedocumented in this encounter Care Teams Carrier Operator Relationship Specialty Start Date End Date Cash Rodriguez MD [address] [place] [address] PCP - General FAMILY PRACTICE 04/25/22 documented as of this encounter
[2024-07-08 19:26] LABS: EDSTREPNEGPOS1 Negative (Negative)
--- NOTE | 2024-07-08 19:34 | ED_ITS ---
HPI - URI/Sore Throat General Chief Complaint: Upper Respiratory Infection Stated Complaint: Sore Throat Time Seen by Provider: 07/08/24 19:20 Source: patient, RN notes reviewed and old records reviewed Mode of arrival: ambulatory Limitations: no limitations History of Present Illness HPI Narrative: 23 year old female who presents to the [facility] care with complaints of sore throat with a white patch noted in her throat since yesterday. Patient reports no fever chills or sweats or any body aches, Patient reports that she has taken some Tylenol for her discomfort. Patient is presently breast feeding. MD elicited complaint: sore throat Onset (ago): day(s) (since yesterday) Consistency: constant Pain scale (0-10): 5 Able to tolerate fluids by mouth: Yes Exacerbating factors: swallowing Treatments prior to arrival: acetaminophen Related Data Home Medications ?Medication ?Instructions ?Recorded ?Confirmed ?Last Taken ?Type No Home Medications 10/21/20 07/08/24 Unknown History Allergies Allergy/AdvReac Type Severity Reaction Status Date / Time amoxicillin (Augmentin) Allergy Intermediate Unknown Verified 07/08/24 19:09 clavulanic acid (Augmentin) Allergy Intermediate Unknown Verified 07/08/24 19:09 Review of Systems Review of Systems: CONSTITUTIONAL: Denies malaise, chills, sweats, or fever. EYES: Denies visual changes, redness, or discharge. ENT: Reports rhinorrhea, congestion, no sinus pain,no otalgia and positive for sore throat. CARDIOVASCULAR: Denies chest pain, palpitations, or edema. RESPIRATORY: Reports no cough.? Denies dyspnea. GASTROINTESTINAL: Denies abdominal pain, nausea, vomiting, diarrhea SKIN: Denies rash or itching. MUSCULOSKELETAL: Denies myalgia. NEUROLOGIC: Denies headache. All systems reviewed & are unremarkable except as noted in HPI and below PMFSH Past Medical History Medical History (Updated 07/09/24 @ 21:29 by Mackenzie Cevallos NP) Miscarriage Surgical History Surgical History No pertinent past surgical history Social History Social History Smoking status: Never smoker Alcohol intake: former Alcohol use details: is currently breast feeding Substance use type: does not use Living arrangements: with family Gender identity (if verbalized by the patient): Female Comments At time of signature, agree with nursing past medical, surgical, social and family history. There is no relevant family history pertinent to the presenting complaint Exam Narrative: GENERAL: Well-appearing, well-nourished, and in no acute distress. HEAD: Normocephalic EYES: PERRLA, conjunctivae clear ENT: Nares clear, turbinates edematous and erythematous, clear discharge. Mucous membranes moist. TM pearly partida with dull light reflex bilaterally; no tragal tenderness. Oropharynx erythematous without lesions. Tonsils red not enlarged and without exudate, no drooling, no hoarseness, no trismus, uvula midline.post nasal drainage. NECK: Supple. No lymphadenopathy CHEST: Clear to auscultation, breath sounds equal. No wheezing, rhonchi, rales, or stridor. No respiratory distress, speaks in full sentences. no cough noted SAO2 100% on room air HEART: Regular rate and rhythm. No murmur heard. SKIN: Warm, dry, no rash. NEURO: Alert and oriented x3. PSYCH: Normal mood and affect Course Course Emergency Course: Patient is aware of diagnosis, understands and agrees to treatment plan.? Anticipatory guidance given.? Patient agrees to follow-up as directed and is aware of reasons to seek care at the emergency department. Portions of this record may have been created with voice recognition software Level of Care: Express Care Visit Vital Signs Vital signs: Vital Signs Temperature 36.7 C 07/08/24 19:04 Pulse Rate 80 07/08/24 19:04 Respiratory Rate 20 07/08/24 19:04 Blood Pressure 133/90 07/08/24 19:04 Pulse Oximetry 100 07/08/24 19:04 Oxygen Delivery Room Air 07/08/24 19:04 Temperature 36.7 C 07/08/24 19:04 Pulse Rate 80 07/08/24 19:04 Respiratory Rate 20 07/08/24 19:04 Blood Pressure 133/90 07/08/24 19:04 Pulse Oximetry 100 07/08/24 19:04 Oxygen Delivery Room Air 07/08/24 19:04 Reviewed MDM - URI/Sore Throat MDM Narrative Medical decision making narrative: Differential diagnosis considered: Gibson virus, strep pharyngitis, allergic rhinitis, upper respiratory tract infection, sinusitis, rhinosinusitis, nasopharyngitis. viral pharyngitis, otitis media, otitis externa, pneumonia, bronchitis, viral cough syndrome, viral syndrome, and influenza.? Exam findings show no acute concerns or changes; patient is non-toxic appearing and is in no distress.? Patient is appropriate for outpatient treatment and follow-up. Differential Diagnosis Differential diagnosis: Likely upper respiratory infection, viral infection, ph aryngitis and other (strep pharyngitis) Medical Records Attestation: I reviewed the patient's medical records. Lab Data Attestation: I reviewed the patient's lab results. Lab results narrative: strep screen negative, culture sent Labs: Lab Results 07/08/24 Range/Units 19:08 POC Grp A Strep Screen Negative (Negative) reviewed Critical Care Time Critical Care Time Critical Care Time: No Discharge Plan Discharge Clinical Impression: Upper respiratory infection, acute Pharyngitis Qualifiers: Pharyngitis/tonsillitis etiology: unspecified etiology Qualified Code(s): J02.9 - Acute pharyngitis, unspecified Patient Disposition: Home Condition: Stable Instructions: Antibiotic Form, Pharyngitis (ED) Additional Instructions: Increase fluids especially juices and water Dosa-eel-okoqqso cough and cold medicine of your choice for your symptoms Tylenol or Ibuprofen for any fever or pain Zyrtec Claritin or Janae daily heat to the face 20-30 minutes 4-6 times a day for pain Salt water gargles, throat lozenges or throat sprays as desired Your strep test today was negative. A throat culture will be sent to the laboratory for further testing. IF the test is positive, you will receive a phone call within 48 hours and an appropriate antibiotic will be initiated at that time. Patient Language: Indian Prescriptions: No Action No Home Medications Follow-up/Referrals: UNKNOWN,DOCTOR [Primary Care Provider] - Time of Disposition: 19:42 Quality Carlotta Coma Scale Eyes: Open Verbal: Oriented and Alert Motor: Follows Commands Wally Coma Total Score: 15
== END 2024-07-08 19:48 | disposition home or self-care (01) ==
PROVIDERS: Emergency Provider Registered Nurse
DX: J06.9 Acute upper respiratory infection, unspecified (principal); J02.9 Acute pharyngitis, unspecified
CPT/HCPCS: 87081; 87880; 99213; G0463